=== PATIENT | female | born 2000 | race Caucasian/White ===

== ENCOUNTER 2024-12-06 14:32 | Emergency (ER) | payer MEDICAID ==
[2024-12-06] MEDS ORDERED: Sodium Chloride 0.9% 10 ML Syringe FLUSH PRN (16:42)
[2024-12-06 16:58] LABS: BASOPHILS PERCENT AUTO 0.3 % (0.1-1.3); EOSINOPHILS PERCENT AUTO 0.0 % (0.0-5.4); IMMATURE GRAN PERCENT AUTO 0.3 % (0.0-0.7); LYMPHOCYTES ABSOLUTE AUTO 1.17 K/uL (0.8-3.3); LYMPHOCYTES PERCENT AUTO 17.4 % (11.4-47.7); MONOCYTES ABSOLUTE AUTO 0.23 K/uL (0.20-0.90); MONOCYTES PERCENT AUTO 3.4 % (3.3-12.6); NEUTROPHILS ABSOLUTE AUTO 5.29 K/uL (1.0-7.6); NEUTROPHILS PERCENT AUTO 78.6 % (40.0-78.1); PLATELET COUNT,PLT 185 K/uL (130-375); RED BLOOD CELL COUNT 4.08 M/uL (3.77-5.24); WHITE BLOOD CELL COUNT,WBC 6.7 K/uL (3.2-11.0)
[2024-12-06 17:01] LABS: BASE EXCESS VENOUS -1.2 mm/L; BICARBONATE,VENOUS 20.6 mmol/L; O2 SATURATION VENOUS 89.6; OXYHEMOGLOBIN 85.5 %; PCO2 VENOUS 27.5 mm/Hg; PH,VENOUS 7.486 (7.350-7.450); PO2 VENOUS 49.6 mm/Hg; TOTAL HEMOGLOBIN 13.5 g/dL (12.0-16.0)
[2024-12-06 17:04] LABS: BASOPHILS ABSOLUTE AUTO 0.02 K/uL (0.00-0.10); EOSINOPHILS ABSOLUTE AUTO 0.00 K/uL (0.00-0.40); IMMATURE GRAN ABSOLUTE AUTO 0.02 K/uL (0.00-0.23)
[2024-12-06 17:21] LABS: A/G RATIO 1.2 (1.2-2.2); ALANINE AMINOTRANSFERASE,ALT 19 U/L (12-78); ASPARTATE AMNIOTRANSFERASE,AST 20 U/L (15-37); BILIRUBIN TOTAL 1.2 mg/dL (0.2-1.0); BLOOD UREA NITROGEN,BUN 14 mg/dL (7-18); CARBON DIOXIDE,CO2 25 mmol/L (21-32); CHLORIDE,CL 102 mmol/L (100-108); CREATININE 0.7 mg/dL (0.6-1.0); EST CRCL DRUG DOSING (CG) 84.95 mL/min; ESTIMATED GFR 123 mL/min (>60); GLUCOSE RANDOM 81 mg/dL (74-106); POTASSIUM,K 4.0 mmol/L (3.6-5.2); PROTEIN TOTAL,TP 7.7 g/dL (6.4-8.2); SODIUM,NA 139 mmol/L (140-148)
[2024-12-06] MEDS: Lactated Ringers 1,000 ML IV ONE (17:45)
[2024-12-06] MEDS: Ondansetron 4 MG/2 ML SDV IVPUSH ONE (17:45)
== END 2024-12-06 18:58 | disposition home or self-care (01) ==
LOC: JP.ED 14:32
DX: R11.2 Nausea with vomiting, unspecified (principal); Z88.1 Allergy status to other antibiotic agents; Z79.899 Other long term (current) drug therapy
CPT/HCPCS: 36415; 80053; 81025; 82803; 83735; 85025; 96361; 96374; 99284; J2405; J7120; 99283